=== PATIENT | female | born 1995 | race Two or more races ===

== ENCOUNTER 2019-06-16 15:44 | Emergency (ER) | payer OTHER ==
[2019-06-16 16:12] VITALS: BP 123/74; PULSE 80; TEMP 98.3; BMI 28.5
[2019-06-16] MEDS ORDERED: SODIUM CHLORIDE 1,000 ML IV STA (16:25)
[2019-06-16] MEDS ORDERED: ACETAMINOPHEN 325 MG TABLET (FP) PO ONE (16:25)
--- NOTE | 2019-06-16 16:25 | PDOC ---
History of Present Illness - General Chief Complaint: Vaginal Bleeding Stated Complaint: VAGINAL BLEEDING 8WKS PRG Time Seen by Provider: 06/16/19 16:14 History Source: Patient Exam Limitations: Language Barrier - History of Present Illness Initial Comments: Milagros Garcia is a 23 yo F who presents to the [facility] er BIBA with 4 days of minimal vaginal bleeding. Patient states that when she wipes herself there is blood on the tissue paper. She has not been experiencing any abdominal pain however. She came to the ER to make sure everything was okay with her baby as she has had two miscarriages and she was nervous that something would go wrong with her current . Patient states she had an US performed on 06/04 at [facility] which showed a 6 week IUP. The patient however thinks that at the time she was actually less than 6 weeks based on her LMP. Patient states that she has been taking her pre-joshua vitamins every day like she is supposed to. She denies any nausea, vomiting, dysuria, frequency, or urgency. LMP: March 16 OB: Follows at [facility] clinic PSH: None reported Social Hx: Denies smoking, drinking, or other substance usage Allergies: NKA, NKDA Past History - Past Medical History Allergies/Adverse Reactions: Allergies Allergy/AdvReac Type Severity Reaction Status Date / Time No Known Allergies Allergy Verified 06/16/19 16:00 - Suicide/Smoking/Psychosocial Hx Smoking History: Never smoked Hx Alcohol Use: No Drug/Substance Use Hx: No Review of Systems - Review of Systems Able to Perform ROS?: Yes Comments:: CONSTITUTIONAL: Absent: fever, no chills, no fatigue EYES: Absent: visual changes ENT: Absent: ear pain, no sore throat CARDIOVASCULAR: Absent: chest pain, no palpitations RESPIRATORY: Absent: cough, no SOB GI: Absent: abdominal pain, no nausea, no vomiting, no constipation, no diarrhea GENITOURINARY: Present: Hematuria Absent: dysuria, no frequency MUSKULOSKELETAL: Absent: back pain, no arthralgia, no myalgia SKIN: Absent: rash NEURO: Absent: headache *Physical Exam - Vital Signs Last Vital Signs Temp Pulse Resp BP Pulse Ox 98.3 F 80 16 123/74 99 06/16/19 16:00 06/16/19 16:00 06/16/19 16:00 06/16/19 16:00 06/16/19 16:00 - Physical Exam Comments: GENERAL: Well-appearing, well-nourished. No apparent distress. HEENT: Normocephalic, atraumatic. PERRL, EOM intact. CARDIOVASCULAR: Normal S1, S2. Regular rate and rhythm. PULMONARY: No evidence of respiratory distress. Lungs clear to auscultation bilaterally. No wheezing, rales or rhonchi. ABDOMEN: Gravid uterus. Soft, non-distended, non-tender. EXTREMITIES: Normal ROM in all four extremities. No gross deformities. SKIN: Warm, dry. No rash NEUROLOGICAL: No focal neurological deficits. ED Treatment Course - LABORATORY CBC & Chemistry Diagram: 06/16/19 16:45 06/16/19 16:45 Medical Decision Making - Medical Decision Making Milagros Garcia is a 23 yo F who presents to the [facility] er BIBA with 4 days of minimal vaginal bleeding. Patient states that when she wipes herself there is blood on the tissue paper. She has not been experiencing any abdominal pain however. She came to the ER to make sure everything was okay with her baby as she has had two miscarriages and she was nervous that something would go wrong with her current . Patient states she had an US performed on 06/04 at [facility] which showed a 6 week IUP. The patient however thinks that at the time she was actually less than 6 weeks based on her LMP. Patient states that she has been taking her pre-joshua vitamins every day like she is supposed to. She denies any nausea, vomiting, dysuria, frequency, or urgency. LMP: March 16 Vital Signs Temp Pulse Resp BP Pulse Ox 98.3 F 80 16 123/74 99 06/16/19 16:00 06/16/19 16:00 06/16/19 16:00 06/16/19 16:00 06/16/19 16:00 DDx IBNLT: vaginal bleeding - vs ectopic, - inevitable vs missed vs partial vs impending, electrolyte/metabolic disturbance, UTI/pylo Plan: Labs, urine, TVUS, IV hydration, analgesia, re-asses Labs: Leukocytosis with left shift Urine: There is bacteria in urine - will treat with keflex Patient will be signed out to night resident Dr. Rahman to follow up final US read and complete ED disposition *DC/Admit/Observation/Transfer Diagnosis at time of Disposition: Vaginal bleeding - Referrals Referrals: Lindsey Recio DO [Primary Care Provider] - - Patient Instructions - Post Discharge Activity
[2019-06-16] MEDS ORDERED: ACETAMINOPHEN 325 MG TABLET (FP) ONE (16:52)
[2019-06-16 17:01] LABS: BASO % 0.7 % (0-2.0); EOS % 1.8 % (0-4.5); HEMATOCRIT 40.5 % (32.4-45.2); HEMOGLOBIN 13.3 GM/dL (10.7-15.3); LYMPH % 21.4 % (8-40); MCH 27.1 pg (25.7-33.7); MCHC 32.8 g/dl (32.0-36.0); MEAN CELL VOLUME 82.5 fl (80-96); MEAN PLT VOLUME 8.9 fl (7.5-11.1); MONO % 6.4 % (3.8-10.2); NEUT % 69.7 % (42.8-82.8); PLATELET COUNT 305 K/MM3 (134-434); RBC 4.91 M/mm3 (3.60-5.2); RDW 14.9 % (11.6-15.6)
[2019-06-16 17:02] LABS: EPI CELLS 32.5 /HPF (0-5/HPF); HYALINE CASTS 27 /lpf (0-8); PH,URINE 5.5 (5.0-8.0); URINE APPEARANCE CLOUDY; URINE BACTERIA 438.7 /hpf (NEGATIVE); URINE BILIRUBIN NEGATIVE (NEGATIVE); URINE COLOR YELLOW; URINE GLUCOSE (UA) NEGATIVE (NEGATIVE); URINE KETONE TRACE (NEGATIVE); URINE LEUK ESTERASE TRACE (NEGATIVE); URINE NITRITE NEGATIVE (NEGATIVE); URINE PROTEIN NEGATIVE (NEGATIVE); URINE RBC 1 /hpf (0-4); URINE WBC 16 /hpf (0-5)
[2019-06-16 17:12] LABS: INR 1.15 (0.83-1.09); PROTHROMBIN TIME (PATIENT) 13.6 SEC (9.7-13.0)
[2019-06-16] MEDS ORDERED: CEPHALEXIN MONOHYDRATE 500 MG CAPSULE (UD) PO ONE (17:17)
[2019-06-16] MEDS ORDERED: CEPHALEXIN MONOHYDRATE 500 MG CAPSULE (UD) ONE (17:29)
--- NOTE | 2019-06-16 17:41 | PDOC ---
Attending Attestation - Resident Resident Name: Eulalio Burgess - ED Attending Attestation I have performed the following: I have examined & evaluated the patient, The case was reviewed & discussed with the resident, I agree w/resident's findings & plan, Exceptions are as noted - HPI HPI: 06/16/19 17:36 23 yo female p/w lower abdominal cramping and vaginal spotting and states she had a pelvic ultrasound 2 weeks ago at [facility] and she was 8 weeks then with intrauterine gestation but no documented heart tones at this time - Physicial Exam PE: 06/16/19 17:43 wnwd 23 yo female in no acute distress head ncat neck supple lungs cta b/l cvs [id number] abd no rebound skin warm and dry Gu exam refused neuro axox3, ambulatory 06/16/19 18:05 - Medical Decision Making 06/16/19 17:41 LMP 03/13/19 she reports 4 days of abd cramping and 3 days of some vaginal spotting when she urinates 06/16/19 17:45 Diff diag includes demise,threatened AB, SL IUP, UTI 06/16/19 18:06 blood type O positive bhcg 9000 06/16/19 18:06 pt refused transvaginal us and instead had a transabdominal pelvic US 06/16/19 19:30 UA UTI++ ultrasound results blighted ovum pt to follow up with fork lift technician for repeat bhcg ,US as outpt and will be given antibiotics for UTI 06/16/19 19:32
[2019-06-16 17:45] LABS: ALBUMIN 4.5 g/dl (3.4-5.0); BILIRUBIN,TOTAL 0.4 mg/dL (0.2-1); BLOOD UREA NITROGEN 9.4 mg/dL (7-18); CALCIUM 10.1 mg/dL (8.5-10.1); CREATININE 0.7 mg/dL (0.55-1.3); POTASSIUM 3.8 mmol/L (3.5-5.1); TOT PROT 7.9 g/dl (6.4-8.2)
--- NOTE | 2019-06-16 19:17 | PDOC ---
*Physical Exam - Vital Signs Last Vital Signs Temp Pulse Resp BP Pulse Ox 98.3 F 80 16 123/74 99 06/16/19 16:00 06/16/19 16:00 06/16/19 16:00 06/16/19 16:00 06/16/19 16:00 ED Treatment Course - LABORATORY CBC & Chemistry Diagram: 06/16/19 16:45 06/16/19 16:45 - ADDITIONAL ORDERS Additional order review: Laboratory Results 06/16/19 06/16/19 06/16/19 16:45 16:45 16:45 PT with INR 13.60 H INR 1.15 H PTT (Actin FS) Sodium Potassium Chloride Carbon Dioxide Anion Gap BUN Creatinine Est GFR (CKD-EPI)AfAm Est GFR (CKD-EPI)NonAf Random Glucose Calcium Total Bilirubin AST ALT Alkaline Phosphatase Total Protein Albumin Beta HCG, Quant Urine Color Yellow Urine Appearance Cloudy Urine pH 5.5 Ur Specific [place] 1.041 H Urine Protein Negative Urine Glucose (UA) Negative Urine Ketones Trace H Urine Blood Trace Urine Nitrite Negative Urine Bilirubin Negative Urine Urobilinogen 1.0 Ur Leukocyte Esterase Trace Urine WBC (Auto) 16 Urine RBC (Auto) 1 Urine Casts (Auto) 27 U Epithel Cells (Auto) 32.5 Urine Crystals (Auto) Urine Bacteria (Auto) 438.7 Urine HCG, Qual Blood Type O POSITIVE Antibody Screen Negative 06/16/19 06/16/19 06/16/19 16:45 16:45 16:45 PT with INR INR PTT (Actin FS) 39.4 H Sodium 140 Potassium 3.8 Chloride 104 Carbon Dioxide 29 Anion Gap 6 L BUN 9.4 Creatinine 0.7 Est GFR (CKD-EPI)AfAm 140.55 Est GFR (CKD-EPI)NonAf 121.27 Random Glucose 101 Calcium 10.1 Total Bilirubin 0.4 AST 17 ALT 20 Alkaline Phosphatase 75 Total Protein 7.9 Albumin 4.5 Beta HCG, Quant 9006.2 Urine Color Urine Appearance Urine pH Ur Specific [place] Urine Protein Urine Glucose (UA) Urine Ketones Urine Blood Urine Nitrite Urine Bilirubin Urine Urobilinogen Ur Leukocyte Esterase Urine WBC (Auto) Urine RBC (Auto) Urine Casts (Auto) U Epithel Cells (Auto) Urine Crystals (Auto) Urine Bacteria (Auto) Urine HCG, Qual Positive Blood Type Antibody Screen 06/16/19 16:45 RBC 4.91 MCV 82.5 MCHC 32.8 RDW 14.9 MPV 8.9 Neutrophils % 69.7 Lymphocytes % 21.4 Monocytes % 6.4 Eosinophils % 1.8 Basophils % 0.7 - Medications Given in the ED: ED Medications Discontinued Medications Generic Name Dose Route Start Last Admin Trade Name Ariasq PRN Reason Stop Dose Admin Acetaminophen 975 mg 06/16/19 16:25 06/16/19 16:59 Tylenol - PO 06/16/19 16:26 975 mg ONCE ONE Administration Cephalexin HCl 500 mg 06/16/19 17:17 06/16/19 18:15 Keflex - PO 06/16/19 17:18 500 mg ONCE ONE Administration Sodium Chloride 1,000 mls @ 1,000 mls/hr 06/16/19 16:25 06/16/19 16:58 Normal Saline - IV 06/16/19 17:24 1,000 mls/hr ASDIR STA Administration Medical Decision Making - Medical Decision Making Pt signed out to me by Dr. Burgess, see his note. 23 year old female approximately 8W by date presented to ED for painless vaginal bleeding. Pt reported she has had confirmed IUP 06/04/19 US performed at [facility]. Pt reported she has been taking vitamins. Initial Vital Signs Temp Pulse Resp BP Pulse Ox 98.3 F 80 16 123/74 99 06/16/19 16:00 06/16/19 16:00 06/16/19 16:00 06/16/19 16:00 06/16/19 16:00 Afebrile. No tachycardia. No tachypnea. No hypotension. No hypoxia on room air. ED Medications Medications Given Generic Name Dose Route Start Last Admin Trade Name Freq PRN Reason Stop Dose Admin Acetaminophen 975 mg 06/16/19 16:25 06/16/19 16:59 Tylenol - PO 06/16/19 16:26 975 mg ONCE ONE Administration Cephalexin HCl 500 mg 06/16/19 17:17 06/16/19 18:15 Keflex - PO 06/16/19 17:18 500 mg ONCE ONE Administration Sodium Chloride 1,000 mls @ 1,000 mls/hr 06/16/19 16:25 06/16/19 16:58 Normal Saline - IV 06/16/19 17:24 1,000 mls/hr ASDIR STA Administration CBC WBC 12.0 K/mm3 (4.0-10.0) H 06/16/19 16:45 RBC 4.91 M/mm3 (3.60-5.2) 06/16/19 16:45 Hgb 13.3 GM/dL (10.7-15.3) 06/16/19 16:45 Hct 40.5 % (32.4-45.2) 06/16/19 16:45 MCV 82.5 fl (80-96) 06/16/19 16:45 MCH 27.1 pg (25.7-33.7) 06/16/19 16:45 MCHC 32.8 g/dl (32.0-36.0) 06/16/19 16:45 RDW 14.9 % (11.6-15.6) 06/16/19 16:45 Plt Count 305 K/MM3 (134-434) 06/16/19 16:45 MPV 8.9 fl (7.5-11.1) 06/16/19 16:45 Absolute Neuts (auto) 8.3 K/mm3 (1.5-8.0) H 06/16/19 16:45 Neutrophils % 69.7 % (42.8-82.8) 06/16/19 16:45 Lymphocytes % 21.4 % (8-40) 06/16/19 16:45 Monocytes % 6.4 % (3.8-10.2) 06/16/19 16:45 Eosinophils % 1.8 % (0-4.5) 06/16/19 16:45 Basophils % 0.7 % (0-2.0) 06/16/19 16:45 Nucleated RBC % 0 % (0-0) 06/16/19 16:45 Mild leukocytosis. No anemia. CMP Sodium 140 mmol/L (136-145) 06/16/19 16:45 Potassium 3.8 mmol/L (3.5-5.1) 06/16/19 16:45 Chloride 104 mmol/L (98-107) 06/16/19 16:45 Carbon Dioxide 29 mmol/L (21-32) 06/16/19 16:45 Anion Gap 6 MMOL/L (8-16) L 06/16/19 16:45 BUN 9.4 mg/dL (7-18) 06/16/19 16:45 Creatinine 0.7 mg/dL (0.55-1.3) 06/16/19 16:45 Est GFR (CKD-EPI)AfAm 140.55 06/16/19 16:45 Est GFR (CKD-EPI)NonAf 121.27 06/16/19 16:45 Random Glucose 101 mg/dL (74-106) 06/16/19 16:45 Calcium 10.1 mg/dL (8.5-10.1) 06/16/19 16:45 Total Bilirubin 0.4 mg/dL (0.2-1) 06/16/19 16:45 AST 17 U/L (15-37) 06/16/19 16:45 ALT 20 U/L (13-61) 06/16/19 16:45 Alkaline Phosphatase 75 U/L (45-117) 06/16/19 16:45 Total Protein 7.9 g/dl (6.4-8.2) 06/16/19 16:45 Albumin 4.5 g/dl (3.4-5.0) 06/16/19 16:45 Beta HCG, Quant 9006.2 mIU/ml 06/16/19 16:45 No electrolyte abnormalities. No DOC. No transamintis. Urine Test Results Urine Color Yellow 06/16/19 16:45 Urine Appearance Cloudy 06/16/19 16:45 Urine pH 5.5 (5.0-8.0) 06/16/19 16:45 Ur Specific [place] 1.041 (1.010-1.035) H 06/16/19 16:45 Urine Protein Negative (NEGATIVE) 06/16/19 16:45 Urine Glucose (UA) Negative (NEGATIVE) 06/16/19 16:45 Urine Ketones Trace (NEGATIVE) H 06/16/19 16:45 Urine Blood Trace (NEGATIVE) 06/16/19 16:45 Urine Nitrite Negative (NEGATIVE) 06/16/19 16:45 Urine Bilirubin Negative (NEGATIVE) 06/16/19 16:45 Ur Leukocyte Esterase Trace (NEGATIVE) 06/16/19 16:45 Positive for UTI - will treat. Blood Type, Rh (Baby) Blood Type O POSITIVE 06/16/19 16:45 No indication for Rhogam. Pending TVUS report. 06/16/19 19:25 TVUS report: blighted ovum. empty gestational sac compatible with a 7 week and 6 day without a pole. no ectopic is identified, but cannot be completely excluded. Pt informed of results and need for F/U in 48 hours for repeat beta. Pt advised to take anitbiotics for UTI. Pt discharged. *DC/Admit/Observation/Transfer Diagnosis at time of Disposition: Vaginal bleeding, Miscarriage - Discharge Dispostion Disposition: HOME Condition at time of disposition: Stable Decision to Admit order: No - Referrals Referrals: Lindsey Recio DO [Primary Care Provider] - - Patient Instructions Printed Discharge Instructions: DI for Vaginal Bleeding During , DI for Miscarriage Additional Instructions: Follow up with your OBGYN in 48 hours to have repeat Beta-HCG testing to compare to todays. Bring all paperwork given to you today. Take Tylenol over the counter for pain. Take as advised on label. You can additionally take Ibuprofen over the counter for pain. Take as advised on label. Return to the Emergency Department for increasing pain, soaking through >2pads/ 2 consecutive hours, lightheadedness, chest pain, shortness of breath, fever, vomiting or any other new, worsening or concerning symptoms. - Post Discharge Activity Forms/Work/School Notes: Back to Work
== END 2019-06-16 19:48 | disposition home or self-care (01) ==
LOC: JER 15:44
PROC: 3E0337Z Introduction of Electrolytic and Water Balance Substance into Peripheral Vein, Percutaneous Approach (ICD-10-PCS; principal; 2019-06-16)
DX: O26.891 Other specified pregnancy related conditions, first trimester (principal); O02.0 Blighted ovum and nonhydatidiform mole; O23.41 Unspecified infection of urinary tract in pregnancy, first trimester; Z3A.01 Less than 8 weeks gestation of pregnancy
CPT/HCPCS: 36415; 76817-TC; 80053; 81003; 84702; 84703; 85025; 85610; 85730; 86850; 86900; 86901; 87086; 96360; 99282-25; J7030